=== PATIENT | female | born 1970 | race African-American/Black ===

== ENCOUNTER 2016-04-25 10:08 | Emergency (ER) | payer MEDICARE, OTHER ==
[~2016-04-25] VITALS: Ht 167.6 cm; Wt 83.0 kg
[2016-04-25 10:16] VITALS: BP 145/63; PULSE 85; RESP 18; TEMP 98.3; O2SAT 97
--- NOTE | 2016-04-25 10:27 | PD ---
HPI Chief Complaint: psychiatric Time Seen by Provider: 10:16 Travel History International Travel<30 days: No Contact w/Intl Traveler<30days: No Traveled to known affect area: No History of Present Illness HPI 46-year-old female was Chen acted and brought in for psychiatric evaluation. Patient has history of schizophrenia bipolar disorder. Patient has not been on any medication recently. Patient was observed to be aggressive and threatening of family members this morning. Patient also was hitting herself this morning. Patient denies any headache. Patient denies any chest pain or shortness of breath. Patient denies abdominal pain. Patient denies any recent medical problem. Patient denies any illicit drug use or alcohol use recently. PFSH Social History Tobacco Use: No Allergies-Medications (Allergen,Severity, Reaction): Coded Allergies: No Known Allergies (Unverified , 04/25/16) Reported Meds & Prescriptions Reported Meds & Active Scripts Active Active Prescriptions or Reported Medications Unobtainable Review of Systems General / Constitutional: No: Fever Eyes: No: Visual changes HENT: No: Headaches Cardiovascular: No: Chest Pain or Discomfort Respiratory: No: Shortness of Breath Gastrointestinal: No: Abdominal Pain Genitourinary: No: Dysuria Musculoskeletal: No: Pain Skin: No Rash Neurologic: No: Weakness Psychiatric: No: Depression Endocrine: No: Polydipsia Hematologic/Lymphatic: No: Easy Bruising Physical Exam Narrative GENERAL: Well-nourished, well-developed patient. SKIN: Warm and dry. HEAD: Normocephalic. EYES: No scleral icterus. No injection or drainage. NECK: Supple, trachea midline. No JVD or lymphadenopathy. CARDIOVASCULAR: Regular rate and rhythm without murmurs, gallops, or rubs. RESPIRATORY: Breath sounds equal bilaterally. No accessory muscle use. GASTROINTESTINAL: Abdomen soft, non-tender, nondistended. MUSCULOSKELETAL: No cyanosis, or edema. BACK: Nontender without obvious deformity. No CVA tenderness. Neurologic exam: Patient is awake and alert oriented to place and person. Patient moves all extremity well. No obvious focal neurological deficit. Data Data Last Documented VS Vital Signs Date Time Temp Pulse Resp B/P Pulse Ox O2 Delivery O2 Flow Rate FiO2 04/26/16 06:23 75 19 110/62 98 Room Air 04/25/16 15:26 98.1 Orders Complete Blood Count With Diff (04/25/16 10:21) Comprehensive Metabolic Panel (04/25/16 10:21) Urinalysis - C+S If Indicated (04/25/16 10:21) Psych Screen (04/25/16 10:21) Drug Screen, Random Urine (04/25/16 10:21) Diet Regular Basic (04/25/16 Lunch) Diet Regular Basic (04/25/16 Dinner) Diet Regular Basic (04/26/16 Breakfast) Labs Laboratory Tests Test 04/25/16 04/25/16 10:30 10:40 White Blood Count 10.1 TH/MM3 Red Blood Count 4.30 MIL/MM3 Hemoglobin 10.7 GM/DL Hematocrit 33.7 % Mean Corpuscular Volume 78.3 FL Mean Corpuscular Hemoglobin 24.9 PG Mean Corpuscular Hemoglobin 31.8 % Concent Red Cell Distribution Width 14.2 % Platelet Count 277 TH/MM3 Mean Platelet Volume 9.2 FL Neutrophils (%) (Auto) 81.8 % Lymphocytes (%) (Auto) 10.9 % Monocytes (%) (Auto) 6.7 % Eosinophils (%) (Auto) 0.4 % Basophils (%) (Auto) 0.2 % Neutrophils # (Auto) 8.3 TH/MM3 Lymphocytes # (Auto) 1.1 TH/MM3 Monocytes # (Auto) 0.7 TH/MM3 Eosinophils # (Auto) 0.0 TH/MM3 Basophils # (Auto) 0.0 TH/MM3 CBC Comment AUTO DIFF Differential Comment AUTO DIFF CONFIRMED Platelet Estimate NORMAL Platelet Morphology Comment ENLARGED Ovalocytes 1+ Urine Color YELLOW Urine Turbidity HAZY Urine pH 5.5 Urine Specific [place] 1.010 Urine Protein 30 mg/dL Urine Glucose (UA) NEG mg/dL Urine Ketones NEG mg/dL Urine Occult Blood TRACE Urine Nitrite NEG Urine Bilirubin NEG Urine Urobilinogen LESS THAN 2.0 MG/DL Urine Leukocyte Esterase LARGE Urine RBC 1 /hpf Urine WBC 4 /hpf Urine Squamous Epithelial 3 /hpf Cells Urine Transitional Epithelial <1 /hpf Cells Urine Bacteria RARE /hpf Urine Hyaline Casts 23 /lpf Urine Mucus FEW /lpf Microscopic Urinalysis Comment CULT NOT INDICATED Sodium Level 141 MEQ/L Potassium Level 3.9 MEQ/L Chloride Level 107 MEQ/L Carbon Dioxide Level 25.0 MEQ/L Anion Gap 9 MEQ/L Blood Urea Nitrogen 17 MG/DL Creatinine 1.24 MG/DL Estimat Glomerular Filtration 56 ML/MIN Rate Random Glucose 83 MG/DL Calcium Level 9.1 MG/DL Total Bilirubin 0.4 MG/DL Aspartate Amino Transf 25 U/L (AST/SGOT) Alanine Aminotransferase 14 U/L (ALT/SGPT) Alkaline Phosphatase 61 U/L Total Protein 8.3 GM/DL Albumin 4.3 GM/DL Urine Opiates Screen NEG Urine Barbiturates Screen NEG Urine Amphetamines Screen NEG Urine Benzodiazepines Screen NEG Urine Cocaine Screen NEG Urine Cannabinoids Screen NEG MDM Medical Decision Making Medical Screen Exam Complete: Yes Emergency Medical Condition: Yes Interpretation(s) 12:26 PM. CBC hemoglobin 10.7 hematocrit 33.7. MCV 78.3. 81 neutrophil. CMP within normal limit. Creatinine 1.24. Urine drug screen negative. UA negative. Differential Diagnosis Differential diagnosis including schizophrenia, psychosis, bipolar disorder. Narrative Course 46-year-old female was Chen acted for aggressive behavior, self-inflicted body harm behavior. Patient has history of schizophrenia and bipolar disorder. 12: 26 PM. Patient is medically cleared for psychiatric evaluation and disposition. Scripts Unable to Obtain Active Prescriptions or Reported Meds Dony Martinez MD Apr 25, 2016 10:27
[2016-04-25 10:56] LABS: AUTOMATED NEUTROPHIL # 8.3 TH/MM3 (1.8-7.7); BASOPHIL % 0.2 % (0.0-2.0); EOSINOPHIL % 0.4 % (0.0-4.0); HEMATOCRIT 33.7 % (35.0-46.0); LYMPH % 10.9 % (9.0-44.0); LYMPHOCYTE # 1.1 TH/MM3 (1.0-4.8); MEAN CELL VOLUME 78.3 FL (80.0-100.0); MEAN CORPUSCULAR HEMOGLOBIN 24.9 PG (27.0-34.0); MEAN CORPUSCULAR HGB CONC 31.8 % (32.0-36.0); MONO % 6.7 % (0.0-8.0); NEUT % 81.8 % (16.0-70.0); PLATELET COUNT 277 TH/MM3 (150-450); RED CELL DISTRIBUTION WIDTH 14.2 % (11.6-17.2); WHITE BLOOD COUNT 10.1 TH/MM3 (4.0-11.0)
[2016-04-25 10:59] LABS: HEMO FLAGS AUTO DIFF
[2016-04-25 11:07] LABS: AMPHETAMINE, URINE NEG (NEG); BARBITURATES, URINE NEG (NEG); COCAINE, URINE NEG (NEG)
[2016-04-25 11:08] LABS: BACTERIA, URINE RARE /hpf; BLOOD, URINE TRACE (NEG); GLUCOSE,URINE NEG (NEG); HYALINE CAST, URINE 23 /lpf (RARE); KETONE, URINE NEG (NEG); MUCUS URINE FEW /lpf (OCC); NITRITE,URINE NEG (NEG); PH, URINE 5.5 (5.0-8.5); SQUAMOUS EPITHELIAL CELL URINE 3 /hpf (0-5); TRANSITIONAL EPI CELLS, URINE <1 /hpf; URINE COLOR YELLOW (YELLW/STRAW)
[2016-04-25 11:09] LABS: COMMENT (UR) CULT NOT INDICATED; CULTURE IF INDICATED CULT NOT INDICATED
[2016-04-25 11:14] LABS: ALT (GPT) 14 U/L (10-53); ANION GAP 9 MEQ/L (5-15); AST (GOT) 25 U/L (15-37); BLOOD UREA NITROGEN 17 MG/DL (7-18); CHLORIDE 107 MEQ/L (98-107); GLOMERULAR FILTRATION RATE 56 ML/MIN (>89); POTASSIUM 3.9 MEQ/L (3.5-5.1); SODIUM (NA) 141 MEQ/L (136-145)
[2016-04-25 11:15] LABS: ALKALINE PHOSPHATASE 61 U/L (45-117); TOTAL BILIRUBIN ADULT 0.4 MG/DL (0.2-1.0)
[2016-04-25 11:22] LABS: OVALOCYTES 1+ (NORMAL); PLATELET ESTIMATE SMEAR NORMAL (NORMAL); PLATELET MORPHOLOGY ENLARGED (NORMAL)
[2016-04-25 11:23] LABS: SCAN/DIFF AUTO DIFF CONFIRMED
[2016-04-25 15:26] VITALS: BP 119/70; PULSE 83; RESP 18; TEMP 98.1; O2SAT 97
[2016-04-25 17:53] VITALS: BP 110/65; PULSE 79; RESP 18; O2SAT 99
[2016-04-25 22:10] VITALS: BP 119/55; PULSE 85; RESP 18; O2SAT 97
[2016-04-26 02:08] VITALS: BP 100/54; PULSE 89; RESP 19; O2SAT 98
[2016-04-26 06:23] VITALS: BP 110/62; PULSE 75; RESP 19; O2SAT 98
== END 2016-04-26 10:15 ==
LOC: NEPA 10:08 → NEPJ 04-26 10:15
DX: Z02.89 Encounter for other administrative examinations (principal); F20.9 Schizophrenia, unspecified; F31.9 Bipolar disorder, unspecified
CPT/HCPCS: 80053; 80307; 81001; 85025; 99284

== ENCOUNTER 2016-08-06 10:01 | Emergency (ER) | payer MEDICARE, OTHER ==
[~2016-08-06] VITALS: Ht 165.1 cm; Wt 70.0 kg
[2016-08-06 10:04] VITALS: BP 95/59; PULSE 76; RESP 24; TEMP 98.4; O2SAT 99
[2016-08-06] MEDS ORDERED: SODIUM CHLOR 0.9% 1000 ML INJ 1,000 ML IV SCH ×2 (10:36→12:18)
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
[2016-08-06] MEDS ORDERED: SODIUM CHLORIDE 0.9% FLUSH 10 ML FLUSH IV FLUSH PRN (10:45)
--- NOTE | 2016-08-06 11:05 | RADRPT ---
EXAM DATE/TIME: 08/06/2016 10:58 [facility] COMPARISON: No previous studies available for comparison. INDICATIONS : Pain without trauma. MEDICAL HISTORY : None. SURGICAL HISTORY : None. ENCOUNTER: Initial ACUITY: 1 day PAIN SCORE: 5/10 LOCATION: Lumbar spine. FINDINGS: 3 views of lumbar spine. Grade 1 retrolisthesis L5 on S1. Bone alignment otherwise within normal limi ts. No evidence of fracture. Minimal endplate osteophytes at every level of the lumbar spine. Modera te severity bony facet hypertrophy at L5-S1. Mild bony facet hypertrophy at L2-3, L3-4, and L4-5. CONCLUSION: No evidence of fracture. Moderate severity bony degenerative findings of the L5-S1 facet joints with grade 1 retrolisthesis L5 on S1. Alex Sanchez MD on August 06, 2016 at 11:01 Board Certified Radiologist. This report was verified electronically.
[2016-08-06 11:25] LABS: AUTOMATED NEUTROPHIL # 2.1 TH/MM3 (1.8-7.7); BASOPHIL % 0.7 % (0.0-2.0); EOSINOPHIL # 0.2 TH/MM3 (0-0.4); EOSINOPHIL % 4.3 % (0.0-4.0); HEMATOCRIT 36.1 % (35.0-46.0); HEMO FLAGS DIFF FINAL; LYMPHOCYTE # 1.7 TH/MM3 (1.0-4.8); MEAN CELL VOLUME 79.5 FL (80.0-100.0); MEAN CORPUSCULAR HEMOGLOBIN 25.3 PG (27.0-34.0); MEAN CORPUSCULAR HGB CONC 31.8 % (32.0-36.0); MONO % 8.5 % (0.0-8.0); NEUT % 48.5 % (16.0-70.0); PLATELET COUNT 220 TH/MM3 (150-450); RED BLOOD COUNT 4.55 MIL/MM3 (4.00-5.30); RED CELL DISTRIBUTION WIDTH 13.3 % (11.6-17.2); WHITE BLOOD COUNT 4.3 TH/MM3 (4.0-11.0)
[2016-08-06 11:44] LABS: ALKALINE PHOSPHATASE 56 U/L (45-117); ALT (GPT) 16 U/L (10-53); ANION GAP 8 MEQ/L (5-15); AST (GOT) 32 U/L (15-37); BICARBONATE 25.8 MEQ/L (21.0-32.0); BLOOD UREA NITROGEN 20 MG/DL (7-18); CHLORIDE 109 MEQ/L (98-107); CREATINE KINASE 406 U/L (26-192); GLOMERULAR FILTRATION RATE 79 ML/MIN (>89); POTASSIUM 3.9 MEQ/L (3.5-5.1); SODIUM (NA) 143 MEQ/L (136-145); TOTAL BILIRUBIN ADULT 0.3 MG/DL (0.2-1.0)
[2016-08-06 11:52] VITALS: BP 104/53; PULSE 54; RESP 15; TEMP 98; O2SAT 100
[2016-08-06 12:00] LABS: CKMB 4.9 NG/ML (0.5-3.6)
[2016-08-06 12:29] LABS: AMPHETAMINE, URINE NEG (NEG); BARBITURATES, URINE NEG (NEG); COCAINE, URINE POS (NEG)
[2016-08-06 13:25] VITALS: BP 100/57; PULSE 63; RESP 20; O2SAT 100
== END 2016-08-06 15:00 | disposition home or self-care (01) ==
LOC: NEPD 10:01
DX: F14.10 Cocaine abuse, uncomplicated (principal)
CPT/HCPCS: 72100; 80053; 80307; 82550; 82552; 85025; 96360; 96361; 99284; J7030

== ENCOUNTER 2016-08-13 03:52 | Inpatient (IN) | payer MEDICARE, OTHER ==
[~2016-08-13] VITALS: Ht 165.1 cm; Wt 78.8 kg
[2016-08-13 03:57] VITALS: BP 124/75; PULSE 92; RESP 22; TEMP 98.7; O2SAT 97
[2016-08-13 04:29] LABS: AUTOMATED NEUTROPHIL # 3.2 TH/MM3 (1.8-7.7); BASOPHIL % 0.3 % (0.0-2.0); EOSINOPHIL # 0.1 TH/MM3 (0-0.4); HEMATOCRIT 33.5 % (35.0-46.0); HEMO FLAGS DIFF FINAL; LYMPH % 21.9 % (9.0-44.0); MEAN CELL VOLUME 79.5 FL (80.0-100.0); MEAN CORPUSCULAR HEMOGLOBIN 25.2 PG (27.0-34.0); MEAN CORPUSCULAR HGB CONC 31.7 % (32.0-36.0); MONO % 5.2 % (0.0-8.0); NEUT % 70.6 % (16.0-70.0); PLATELET COUNT 196 TH/MM3 (150-450); RED BLOOD COUNT 4.21 MIL/MM3 (4.00-5.30); RED CELL DISTRIBUTION WIDTH 13.9 % (11.6-17.2); WHITE BLOOD COUNT 4.6 TH/MM3 (4.0-11.0)
[2016-08-13] MEDS ORDERED: HALOPERIDOL LACTATE 5 MG/ML AMP IM ONE (04:30)
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
[2016-08-13 04:59] LABS: ALT (GPT) 12 U/L (10-53); ANION GAP 9 MEQ/L (5-15); AST (GOT) 23 U/L (15-37); BICARBONATE 23.3 MEQ/L (21.0-32.0); BLOOD UREA NITROGEN 20 MG/DL (7-18); CHLORIDE 112 MEQ/L (98-107); GLOMERULAR FILTRATION RATE 66 ML/MIN (>89); POTASSIUM 3.9 MEQ/L (3.5-5.1); SODIUM (NA) 144 MEQ/L (136-145)
[2016-08-13 05:03] LABS: ALKALINE PHOSPHATASE 53 U/L (45-117); BETA HCG QUANT LESS THAN 1 MIU/ML (0-5); TOTAL BILIRUBIN ADULT 0.2 MG/DL (0.2-1.0)
[2016-08-13 10:59] VITALS: BP 95/51; PULSE 70; RESP 16; O2SAT 100
[2016-08-13 14:05] LABS: AMPHETAMINE, URINE NEG (NEG); BARBITURATES, URINE NEG (NEG); COCAINE, URINE POS (NEG)
[2016-08-13 14:09] VITALS: BP 112/62; PULSE 73; RESP 16; O2SAT 98
[2016-08-13 14:29] VITALS: BP 101/64; PULSE 62; RESP 18
[2016-08-13 14:57] VITALS: BP 101/64; PULSE 62; RESP 17; O2SAT 99
[2016-08-13] MEDS ORDERED: MAGNESIUM HYDROXIDE SUSP 30 ML CUP PO PRN (17:00)
[2016-08-13] MEDS ORDERED: ACETAMINOPHEN 325 MG TAB PO PRN (17:00)
[2016-08-13] MEDS ORDERED: ALUMINUM/MAGNESIUM/SIMETH 30 ML CUP PO PRN (17:00)
[2016-08-13] MEDS ORDERED: LORazepam 1 MG TAB PO PRN (17:00)
[2016-08-13] MEDS ORDERED: diphenhydrAMINE HCL 50 MG/ML VIAL - HS PRN IM (17:00)
[2016-08-13] MEDS ORDERED: diphenhydrAMINE HCL 50 MG CAP - HS PRN PO (17:00)
[2016-08-13] MEDS ORDERED: LORazepam 2 MG/ML VIAL IM PRN (17:00)
[2016-08-13 17:09] VITALS: BP 114/68; PULSE 87; RESP 18; TEMP 96
[2016-08-13] MEDS: REMOVE OLD NICOTINE PATCH T-DERMAL SCH (21:00)
[2016-08-13] MEDS: HALOPERIDOL 5 MG TAB PO SCH (21:00)
[2016-08-14 05:43] VITALS: BP 101/51; PULSE 57; RESP 18; TEMP 97; O2SAT 93
[2016-08-14 07:52] LABS: ANION GAP 8 MEQ/L (5-15); BICARBONATE 25.3 MEQ/L (21.0-32.0); BLOOD UREA NITROGEN 12 MG/DL (7-18); CHLORIDE 108 MEQ/L (98-107); GLOMERULAR FILTRATION RATE 97 ML/MIN (>89); POTASSIUM 4.2 MEQ/L (3.5-5.1); SODIUM (NA) 141 MEQ/L (136-145)
[2016-08-14 07:55] LABS: HDL CHOLESTEROL 61.2 MG/DL (40.0-60.0); LDL CHOLESTEROL 54 MG/DL (0-99)
[2016-08-14] MEDS: HALOPERIDOL 5 MG TAB PO SCH ×2 (09:00→21:00)
[2016-08-14] MEDS: BENZTROPINE MESYLATE 1 MG TAB PO SCH (09:00)
[2016-08-14] MEDS: NICOTINE 21 MG/24 HR PATCH T-DERMAL SCH (09:00)
--- NOTE | 2016-08-14 11:21 | HHI.HP ---
Provisional Diagnosis Admission Date Aug 13, 2016 at 16:02 [place] I. 1. Schizophrenia, undifferentiated type, acute exacerbation Rule out component of drug induced psychotic disorder 2. Cocaine abuse [place] II. Deferred [place] V. GAF is 40 presently Certification of Person's Competence To Provide Express and Informed Consent I have personally examined Lynne Grubbs , a person being served at [facility] on, Aug 14, 2016 11:21. Express and informed consent means consent voluntarily given in writing, by a competent person, after sufficient explanation and disclosure of the subject matter involved to enable the person to make a knowing and willful decision without any element of force, fraud, deceit, duress, or other form of constraint or coercion. This person is 18 years of age or older, is not now known to be incompetent to consent to treatment with a guardian advocate, and does not have a health care surrogate or proxy currently making medical treatment decisions. I have found this person to be one of the following: [x] Competent to provide express and informed consent, as defined above, for voluntary admission to this facility and is competent to provide express and informed consent for treatment. He/she has the consistent capacity to make well reasoned, willful, and knowing decisions concerning his or her medical or mental health treatment. The person fully and consistently understands the purpose of the admission for examination/placement and is fully capable of personally exercising all rights assured [place] Incompetent to provide express and informed consent to voluntary admission, and this is incompetent to provide express and informed consent to treatment. The person must be transferred to involuntary status and a petition for a guardian advocate filed with the Circuit Court. [] Refusing to provide express and informed consent to voluntary admission but is competent to provide express and informed consent for treatment. The person must be discharged or transferred to involuntary status. Form shall be completed within 24 hours of a person's arrival at the receiving facility and filed in the clinical record of each person: 1. Admitted on a voluntary basis 2. Permitted to provide express and informed consent to his/her own treatment 3. Allowed to transfer from involuntary to voluntary status 4. Prior to permitting a person to consent to his or her own treatment after having been previously found incompetent to consent to treatment. History of Present Illness Capacity: Has Capacity HPI Ms. Grubbs is a 46-year-old female with a self-reported history of depression and a chart history of schizophrenia who presents under a [place] act from [place] [employer] alleging that the patient was agitated and aggressive at home. Reviewing our electronic medical record, I note that patient was admitted previously under a somewhat different name under Dr. Tapia in March 2015. Patient seen and examined with counselor and nurse. Chart reviewed. I note that Dr. Zamudio started the patient on some Haldol. Case discussed with nursing staff. On my examination today, the patient says that her agitation was the result of "the way my family was behaving towards me. They were turning lights off. They were smiling likely were up to something." The patient later goes on to say that she believes that they were trying to participate in some sort of sance, and she does not support this sort of behavior. She says that nothing like this has ever happened before with her family. No ideas of reference. No thought insertion or withdrawal. Denies any suicidal or homicidal ideation. Denies any audiovisual hallucinations. Mood fair. Sleeping and eating okay. No hypomanic or manic symptoms noted. The remainder of the psychiatric ROS is negative. She is tolerating the Haldol well without side effects and feels like this is a good medication for her. Past psychiatric history: Patient reports a history of depression. Chart history suggests schizophrenia. She is not currently under the care of a psychiatrist. Following her admission with Dr. Tapia, the patient was later admitted that [facility] a few months ago. She denies a history of suicide attempts. Review of Systems Except as stated in HPI: all other systems reviewed are Neg Past Psych History Psychological trauma history No reported trauma history to me Violence risk - others (6 mos) Indeterminate. The patient does seem somewhat paranoid regarding her family but denies any homicidal ideation. She was also allegedly somewhat aggressive at home. Violence risk - self (6 mos) Suspect lower risk. Denies suicidal ideation. No reported history of suicide attempts. No family history of suicide attempts. Substance use is a risk factor. Substance Abuse History Drugs/Alcohol past 12 months Patient admits to recent use of powder cocaine. I note that her urine toxicology has been positive for this substance in the past. She also smokes a pack a day of cigarettes. Denies any other substance use. Past Family Social History Coded Allergies: No Known Allergies (Unverified , 04/25/16) Past Medical History Patient denies any medical history. Unable to Obtain Active Prescriptions or Reported Meds Current Medications Medications (Trade) Dose Ordered Sig/Adal Route Start Time Stop Time Status Last Admin (Ativan) 1 mg Q6H PRN PO 08/13/16 17:00 08/13/16 21:25 (Ativan Inj) 1 mg Q6H PRN IM 08/13/16 17:00 (Benadryl) 50 mg HS PRN PO 08/13/16 17:00 (Benadryl Inj) 50 mg HS PRN IM 08/13/16 17:00 (Tylenol) 650 mg Q4H PRN PO 08/13/16 17:00 (Milk Of Magnesia Liq) 30 ml DAILY PRN PO 08/13/16 17:00 (Mag-Al Plus Susp Liq) 30 ml Q6H PRN PO 08/13/16 17:00 (Habitrol 21 Mg Patch.24 Hr) 1 patch DAILY T-DERMAL 08/14/16 09:00 Miscellaneous Information 1 HS T-DERMAL 08/13/16 21:00 (Haldol) 5 mg BID PO 08/13/16 21:00 08/14/16 09:00 (Cogentin) 1 mg DAILY PO 08/14/16 09:00 08/14/16 09:00 Family History Patient denies any family history of serious mental illness or suicide. She does report that substance use issues run on her mother's side of the family. Social History Patient reports that she had been staying with her family but now would like to seek new housing. She is . She does have children and keeps in telephone contact with them. She has some college education. She is presently disabled and receives about $700 a month she tells us. She denies any or legal history. Denies any access to guns or firearms. Patient's Strengths (min. 2) In a monitored setting. Verbally fluent. Physical Exam Physical examination was completed by the ED provider. On my examination today , the patient appears to be in no acute physical distress. No abnormal motor movements noted. Laboratories and vital signs reviewed: Vital Signs Vital Signs Date Time Temp Pulse Resp B/P Pulse Ox O2 Delivery O2 Flow Rate FiO2 08/14/16 05:43 97.0 57 18 101/51 93 08/13/16 14:09 Room Air I/O 08/13/16 08/13/16 08/14/16 08:00 16:00 00:00 Intake Total 480 ml Balance 480 ml Lab Results Item Value Date Time White Blood Count 4.6 TH/MM3 08/13/16 0410 Hemoglobin 10.6 GM/DL L 08/13/16 0410 Platelet Count 196 TH/MM3 08/13/16 0410 Sodium Level 141 MEQ/L 08/14/16 0555 Potassium Level 4.2 MEQ/L 08/14/16 0555 Chloride Level 108 MEQ/L H 08/14/16 0555 Carbon Dioxide Level 25.3 MEQ/L 08/14/16 0555 Blood Urea Nitrogen 12 MG/DL 08/14/16 0555 Creatinine 0.77 MG/DL 08/14/16 0555 Random Glucose 88 MG/DL 08/14/16 0555 Aspartate Amino Transf (AST/SGOT) 23 U/L 08/13/16 0410 Alanine Aminotransferase (ALT/SGPT) 12 U/L 08/13/16 0410 Alkaline Phosphatase 53 U/L 08/13/16 0410 Human Chorionic Gonadotropin, Quant LESS THAN 1 MIU/ML 08/13/16 0410 Urine Cocaine Screen POS H 08/13/16 1345 Ethyl Alcohol Level LESS THAN 3 MG/DL 08/13/16 0410 Mental Status Examination Patient is in hospital gown. She is somewhat disheveled but appears to be maintaining basic hygiene. She is awake and alert and oriented to person and hospital at least. No evidence of delirium. No abnormal motor movements noted. Speech is somewhat slow but otherwise within normal limits for tone and volume. Language and fund of knowledge seem average. Focus and concentration seem fairly intact. Memory is grossly intact on clinical exam. Mood is reportedly fair but affect is somewhat blunted. Thought process linear. No loosening of associations. Possibly some paranoia directed against her family but no other evidence delusional material. Denies audiovisual hallucinations. Denies suicidal or homicidal ideation. Insight and judgment are poor. Assessment & Plan Problem List: (1) Schizophrenia ICD Code: F20.9 (2) Cocaine abuse ICD Code: F14.10 Assessment & Plan This is a 46-year-old female with psychiatric history as detailed above who presents under a [place] act. On my examination today, the patient does articulate some ideation that I suspect is paranoid in nature directed against her family. She denies any audiovisual hallucinations or issues with mood at this time. She is tolerating the Haldol that Dr. Zamudio started her on well without side effects. She would like to move away from her family, and given her comorbid substance use issues we discussed about possible sober living placement, and the patient is agreeable to this. I will admit the patient to the inpatient psychiatric unit for observation and stabilization as well as possibly for placement as detailed above. Admitted inpatient. Voluntary status. Check a CBC as well as iron studies in the morning. Continue Haldol 5 mg twice daily as ordered. To consider Haldol Decanoate. Continue Cogentin as ordered. Continue Benadryl and Ativan as needed. Vitals every shift. Counselor to see. Disposition planning. Estimated length of stay: 7-9 days. Discharge Planning Possible sober living placement. Request HC Surrog/Guard Advoc?: No Problem Qualifiers (1) Schizophrenia: Qualified Code: F20.3 - Undifferentiated schizophrenia Mathew Dominguez MD Aug 14, 2016 11:21
[2016-08-14 17:09] LABS: HEMOGLOBIN A1a 1.2 %; HEMOGLOBIN A1b 0.7 %; HEMOGLOBIN Ao 86.2 %; HEMOGLOBIN F 1.1 %; HEMOGLOBIN LA1C 1.7 %; HEMOGLOBIN P3 3.2 %
[2016-08-14 17:55] VITALS: BP 104/53; PULSE 63; RESP 18; TEMP 98.8; O2SAT 97
[2016-08-14] MEDS: REMOVE OLD NICOTINE PATCH T-DERMAL SCH (21:00)
[2016-08-15 05:50] VITALS: BP 103/51; PULSE 60; RESP 18; TEMP 98.3; O2SAT 97
[2016-08-15 08:03] LABS: AUTOMATED NEUTROPHIL # 1.5 TH/MM3 (1.8-7.7); BASOPHIL % 0.7 % (0.0-2.0); EOSINOPHIL # 0.3 TH/MM3 (0-0.4); EOSINOPHIL % 6.4 % (0.0-4.0); HEMO FLAGS DIFF FINAL; LYMPH % 47.5 % (9.0-44.0); LYMPHOCYTE # 1.9 TH/MM3 (1.0-4.8); MEAN CORPUSCULAR HEMOGLOBIN 24.9 PG (27.0-34.0); MEAN CORPUSCULAR HGB CONC 31.1 % (32.0-36.0); MONO % 6.4 % (0.0-8.0); PLATELET COUNT 218 TH/MM3 (150-450); RED BLOOD COUNT 4.75 MIL/MM3 (4.00-5.30); WHITE BLOOD COUNT 3.9 TH/MM3 (4.0-11.0)
[2016-08-15 08:28] LABS: FERRITIN 26 NG/ML (8-252); TRANSFERRIN IRON PROFILE 265 MG/DL (200-360)
[2016-08-15] MEDS: HALOPERIDOL 5 MG TAB PO SCH ×2 (08:57→21:16)
[2016-08-15] MEDS: BENZTROPINE MESYLATE 1 MG TAB PO SCH (08:57)
[2016-08-15] MEDS: NICOTINE 21 MG/24 HR PATCH T-DERMAL SCH (08:57)
--- NOTE | 2016-08-15 11:36 | HHI.PYPN ---
Subjective Remarks Patient seen and examined with counselor and nurse. Chart reviewed. Case discussed with nurse, counselor and occupational therapist in treatment team. Per nursing staff, the patient is fairly seclusive to her room. On my examination today, the patient denies any SI, HI or AVH. She presents as somewhat hypoverbal and flat. She does not describe any new delusional material. Denies side effects from medications. Complains of R flank pain x 1.5mos. No associated symptoms, no urinary symptoms, no exacerbating/relieving factors. Review of Systems ROS Limitations: Poor Historian Except as stated in HPI: all other systems reviewed are Neg Objective Alert: Yes [place]: Person, Place (at least) Mood: Calm Affect: Flat Memory Intact: Comment (At least fair on clinical exam) Hallucinations: Other (No AVH) Delusions: No Delusion Type: Other (No new delusions. Continues to believe family was holding seances.) Suicidal: Ideation (Denies SI) Homicidal: Ideation (Denies HI) Insight/Judgment Poor Remarks No abnormal motor movements noted. Thought process fairly linear. Some paucity of speech. Labs Test 08/15/16 06:47 White Blood Count 3.9 TH/MM3 Red Blood Count 4.75 MIL/MM3 Hemoglobin 11.8 GM/DL Hematocrit 38.0 % Mean Corpuscular Volume 80.0 FL Mean Corpuscular Hemoglobin 24.9 PG Mean Corpuscular Hemoglobin 31.1 % Concent Red Cell Distribution Width 14.0 % Platelet Count 218 TH/MM3 Mean Platelet Volume 10.0 FL Neutrophils (%) (Auto) 39.0 % Lymphocytes (%) (Auto) 47.5 % Monocytes (%) (Auto) 6.4 % Eosinophils (%) (Auto) 6.4 % Basophils (%) (Auto) 0.7 % Neutrophils # (Auto) 1.5 TH/MM3 Lymphocytes # (Auto) 1.9 TH/MM3 Monocytes # (Auto) 0.3 TH/MM3 Eosinophils # (Auto) 0.3 TH/MM3 Basophils # (Auto) 0.0 TH/MM3 CBC Comment DIFF FINAL Differential Comment Iron Level 109 MCG/DL Total Iron Binding Capacity 371 MCG/DL Percent Iron Saturation 29.4 % Ferritin 26 NG/ML Labs reviewed. Iron studies within normal limits. Anemia improved but the patient now appears to have a mild leukopenia and granulocytopenia. Vitals/IOs Vital Signs Date Time Temp Pulse Resp B/P Pulse Ox O2 Delivery O2 Flow Rate FiO2 08/15/16 05:50 98.3 60 18 103/51 97 08/13/16 14:09 Room Air Assessment & Plan Problem List: (1) Schizophrenia ICD Code: F20.9 (2) Cocaine abuse ICD Code: F14.10 Assessment & Plan Recheck CBC in the morning for leukopenia/granulocytopenia. I do not suspect this is related to recent introduction of Haldol, but if dyscrasia continues to worsen, may need to consult hospitalist and/or modify therapy. I will continue the Haldol as ordered for now. Check UA for flank pain. Continue to monitor on the inpatient unit. Continue other medications and care as ordered. Justification for Cont. Inpt. Concern for complicating condition. High risk for decompensation in a less restrictive environment. Discharge Planning Possibly to sober living. Counselor to obtain collateral from patient's daughters with her permission. Request HC Surrog/Guard Advoc?: No Problem Qualifiers (1) Schizophrenia: Qualified Code: F20.3 - Undifferentiated schizophrenia Mathew Dominguez MD Aug 15, 2016 11:36
[2016-08-15 18:50] VITALS: BP 91/51; PULSE 69; RESP 17; TEMP 98.2; O2SAT 98
[2016-08-15] MEDS: REMOVE OLD NICOTINE PATCH T-DERMAL SCH (21:00)
[2016-08-16 06:14] VITALS: BP 92/50; PULSE 64; RESP 18; TEMP 98; O2SAT 98
[2016-08-16] MEDS: NICOTINE 21 MG/24 HR PATCH T-DERMAL SCH (09:00)
[2016-08-16] MEDS: HALOPERIDOL 5 MG TAB PO SCH ×2 (09:01→20:12)
[2016-08-16] MEDS: BENZTROPINE MESYLATE 1 MG TAB PO SCH (09:01)
[2016-08-16 11:35] LABS: AUTOMATED NEUTROPHIL # 1.8 TH/MM3 (1.8-7.7); BASOPHIL % 0.9 % (0.0-2.0); EOSINOPHIL # 0.2 TH/MM3 (0-0.4); EOSINOPHIL % 5.2 % (0.0-4.0); HEMATOCRIT 38.8 % (35.0-46.0); HEMO FLAGS DIFF FINAL; LYMPH % 34.2 % (9.0-44.0); LYMPHOCYTE # 1.2 TH/MM3 (1.0-4.8); MEAN CELL VOLUME 79.5 FL (80.0-100.0); MEAN CORPUSCULAR HGB CONC 31.4 % (32.0-36.0); MONO % 7.2 % (0.0-8.0); NEUT % 52.5 % (16.0-70.0); PLATELET COUNT 230 TH/MM3 (150-450); RED BLOOD COUNT 4.89 MIL/MM3 (4.00-5.30); RED CELL DISTRIBUTION WIDTH 14.1 % (11.6-17.2); WHITE BLOOD COUNT 3.5 TH/MM3 (4.0-11.0)
--- NOTE | 2016-08-16 12:29 | HHI.PYPN ---
Subjective Remarks Patient seen and examined with counselor. Chart reviewed. On my examination today, affect is more reactive. Patient laughs and smiles appropriately at times. She says that she has spoken with her older daughter, Marian, and gives us her number to obtain collateral. Denies AVH. No paranoia. No SI/HI. Still wants to get her own apartment but is not really interested in [facility] or sober living. Might go back to home she came from temporarily while looking for alternative lodging. Denies side effects from medications. Pleased with current dose. No physical complaints. Review of Systems Except as stated in HPI: all other systems reviewed are Neg Objective Alert: Yes [place]: Person, Place Mood: Calm Affect: Appropriate Memory Intact: Comment (fair) Hallucinations: Other (denies AVH) Delusions: No Delusion Type: Other (no delusional material) Suicidal: Ideation (Denies SI) Homicidal: Ideation (Denies HI) Insight/Judgment Fair Remarks No motor abnormalities noted. Labs Test 08/16/16 11:12 White Blood Count 3.5 TH/MM3 Red Blood Count 4.89 MIL/MM3 Hemoglobin 12.2 GM/DL Hematocrit 38.8 % Mean Corpuscular Volume 79.5 FL Mean Corpuscular Hemoglobin 25.0 PG Mean Corpuscular Hemoglobin 31.4 % Concent Red Cell Distribution Width 14.1 % Platelet Count 230 TH/MM3 Mean Platelet Volume 9.6 FL Neutrophils (%) (Auto) 52.5 % Lymphocytes (%) (Auto) 34.2 % Monocytes (%) (Auto) 7.2 % Eosinophils (%) (Auto) 5.2 % Basophils (%) (Auto) 0.9 % Neutrophils # (Auto) 1.8 TH/MM3 Lymphocytes # (Auto) 1.2 TH/MM3 Monocytes # (Auto) 0.3 TH/MM3 Eosinophils # (Auto) 0.2 TH/MM3 Basophils # (Auto) 0.0 TH/MM3 CBC Comment DIFF FINAL Differential Comment Labs reviewed: ANC improved but WBC about the same. UA not available for my review. Vitals/IOs Vital Signs Date Time Temp Pulse Resp B/P Pulse Ox O2 Delivery O2 Flow Rate FiO2 08/16/16 06:14 98.0 64 18 92/50 98 08/13/16 14:09 Room Air Assessment & Plan Problem List: (1) Schizophrenia ICD Code: F20.9 (2) Cocaine abuse ICD Code: F14.10 Assessment & Plan Continue Haldol and Cogentin as ordered. Continue to trend CBC. I will ask hospitalist to evaluate the patient for leukopenia. Continue to monitor on the inpatient unit. Continue other medications and care as ordered. Justification for Cont. Inpt. Possible complicating condition. Risk for decompensation. Discharge Planning Possible discharge end of this week or beginning of next week. Request HC Surrog/Guard Advoc?: No Problem Qualifiers (1) Schizophrenia: Qualified Code: F20.3 - Undifferentiated schizophrenia Mathew Dominguez MD Aug 16, 2016 12:29
--- NOTE | 2016-08-16 16:10 | PD.CONS ---
HPI Service [facility] Consult Requested By Angelica Primary Care Physician Clotilde Primary Care Physician Diagnoses: History of Present Illness Written by ELIZA Ha acting as scribe for Dr. Topete] on 08/16/16 at 14 :30. 46 y/o female with a history of depression came to the hospital because she was hearing voices. [facility] was consulted for leukopenia. Patient denies any history of low blood counts in the past. Denies any fevers, chills, or dysuria noted. She states the voices are getting better. She denies any chest pain or sob. No signs of infection noted. Review of Systems Constitutional: DENIES: Fever, Chills Respiratory: DENIES: Cough, Sputum production, Shortness of breath Cardiovascular: DENIES: Chest pain, Lower Extremity Edema Gastrointestinal: DENIES: Constipation, Diarrhea, Nausea, Vomiting Genitourinary: DENIES: Hematuria, Dysuria Musculoskeletal: DENIES: Back pain, Neck pain Hematologic/lymphatic: DENIES: Lymphadenopathy Neurologic: DENIES: Headache Past Family Social History Allergies: Coded Allergies: No Known Allergies (Unverified , 04/25/16) Past Medical History Depression Past Surgical History Patient denies any surgical history Reported Medications Reported Meds & Active Scripts Active Active Prescriptions or Reported Medications Unobtainable Active Ordered Medications Current Medications Medications (Trade) Dose Ordered Sig/Adal Route Start Time Stop Time Status Last Admin (Ativan) 1 mg Q6H PRN PO 08/13/16 17:00 08/13/16 21:25 (Ativan Inj) 1 mg Q6H PRN IM 08/13/16 17:00 (Benadryl) 50 mg HS PRN PO 08/13/16 17:00 08/14/16 21:01 (Benadryl Inj) 50 mg HS PRN IM 08/13/16 17:00 (Tylenol) 650 mg Q4H PRN PO 08/13/16 17:00 08/15/16 08:59 (Milk Of Magnesia Liq) 30 ml DAILY PRN PO 08/13/16 17:00 (Mag-Al Plus Susp Liq) 30 ml Q6H PRN PO 08/13/16 17:00 (Habitrol 21 Mg Patch.24 Hr) 1 patch DAILY T-DERMAL 08/14/16 09:00 Miscellaneous Information 1 HS T-DERMAL 08/13/16 21:00 (Haldol) 5 mg BID PO 08/13/16 21:00 08/16/16 09:01 (Cogentin) 1 mg DAILY PO 08/14/16 09:00 08/16/16 09:01 Family History Patient is unsure of her family history Social History Tobacco use: denies Alcohol use: 2 16oz of natural ice a day Illicit drug use: cocaine and marijuana Physical Exam Vital Signs Vital Signs Date Time Temp Pulse Resp B/P Pulse Ox O2 Delivery O2 Flow Rate FiO2 08/16/16 06:14 98.0 64 18 92/50 98 08/15/16 18:50 98.2 69 17 91/51 98 Physical Exam GENERAL: This is a well-nourished, well-developed patient, in no apparent distress. SKIN: No rashes, ecchymoses or lesions. Cool and dry. HEAD: Atraumatic. Normocephalic. No temporal or scalp tenderness. EYES: Pupils equal round and reactive. Extraocular motions intact. No scleral icterus. No injection or drainage. ENT: Nose without bleeding, purulent drainage or septal hematoma.Airway patent. NECK: Trachea midline. No JVD or lymphadenopathy. Supple, nontender, no meningeal signs. CARDIOVASCULAR: Regular rate and rhythm without murmurs, gallops, or rubs. RESPIRATORY: Clear to auscultation. Breath sounds equal bilaterally. No wheezes , rales, or rhonchi. GASTROINTESTINAL: Abdomen soft, non-tender, nondistended. MUSCULOSKELETAL: Extremities without clubbing, cyanosis, or edema NEUROLOGICAL: Awake and alert. Motor and sensory grossly within normal limits. Normal speech. Laboratory Laboratory Tests Test 08/16/16 11:12 White Blood Count 3.5 Red Blood Count 4.89 Hemoglobin 12.2 Hematocrit 38.8 Mean Corpuscular Volume 79.5 Mean Corpuscular Hemoglobin 25.0 Mean Corpuscular Hemoglobin 31.4 Concent Red Cell Distribution Width 14.1 Platelet Count 230 Mean Platelet Volume 9.6 Neutrophils (%) (Auto) 52.5 Lymphocytes (%) (Auto) 34.2 Monocytes (%) (Auto) 7.2 Eosinophils (%) (Auto) 5.2 Basophils (%) (Auto) 0.9 Neutrophils # (Auto) 1.8 Lymphocytes # (Auto) 1.2 Monocytes # (Auto) 0.3 Eosinophils # (Auto) 0.2 Basophils # (Auto) 0.0 CBC Comment DIFF FINAL Differential Comment Result Diagram: 08/16/16 1112 08/14/16 0555 Assessment and Plan Problem List: (1) Schizophrenia ICD Code: F20.9 Status: Acute (2) Substance abuse ICD Code: F19.10 Status: Chronic (3) Leukopenia ICD Code: D72.819 Status: Acute Assessment and Plan 46 y/o female with a history of depression came to the hospital because she was hearing voices. [facility] was consulted for leukopenia. Schizophrenia -Managed by psych Leukopenia, no fevers or signs of infection WBC 3.9-->3.5, neutrophil count normal. -Repeat CBC in 2 days -Cont to monitor Substance abuse, cocaine and etoh abuse -Encouraged to quit DVT prophylaxis: Ambulation This note was transcribed by scribe [Sushma Magana]. I, Dr. Dot Palacios personally performed the history, physical exam, and medical decision making; and confirmed the accuracy of the information in the transcribed note. Authenticated by Dr. Dot Palacios on 08/16/16 at 1437. Discussed Condition With Patient Problem Qualifiers (1) Schizophrenia: Qualified Code: F20.3 - Undifferentiated schizophrenia Sushma Magana Aug 16, 2016 16:10 Dot Palacios MD Aug 16, 2016 17:58
[2016-08-16 17:59] VITALS: BP 97/46; PULSE 66; RESP 16; TEMP 97.4; O2SAT 98
[2016-08-16 20:54] VITALS: BP 97/46; PULSE 64; RESP 18; TEMP 98; O2SAT 98
[2016-08-16] MEDS: REMOVE OLD NICOTINE PATCH T-DERMAL SCH (21:00)
[2016-08-17 05:28] VITALS: BP 91/56; PULSE 83; RESP 16; TEMP 98.1; O2SAT 97
[2016-08-17] MEDS: NICOTINE 21 MG/24 HR PATCH T-DERMAL SCH (09:00)
[2016-08-17] MEDS: BENZTROPINE MESYLATE 1 MG TAB PO SCH (09:01)
[2016-08-17] MEDS: HALOPERIDOL 5 MG TAB PO SCH (09:01)
[2016-08-17 11:06] LABS: AUTOMATED NEUTROPHIL # 1.8 TH/MM3 (1.8-7.7); BASOPHIL % 0.9 % (0.0-2.0); EOSINOPHIL # 0.2 TH/MM3 (0-0.4); EOSINOPHIL % 4.9 % (0.0-4.0); HEMATOCRIT 38.7 % (35.0-46.0); HEMO FLAGS DIFF FINAL; LYMPH % 36.7 % (9.0-44.0); LYMPHOCYTE # 1.4 TH/MM3 (1.0-4.8); MEAN CELL VOLUME 80.8 FL (80.0-100.0); MEAN CORPUSCULAR HEMOGLOBIN 24.4 PG (27.0-34.0); MEAN CORPUSCULAR HGB CONC 30.3 % (32.0-36.0); MONO % 9.2 % (0.0-8.0); NEUT % 48.3 % (16.0-70.0); PLATELET COUNT 193 TH/MM3 (150-450); RED BLOOD COUNT 4.78 MIL/MM3 (4.00-5.30); WHITE BLOOD COUNT 3.7 TH/MM3 (4.0-11.0)
[2016-08-17] MEDS ORDERED: Benztropine PO (13:05)
[2016-08-17] MEDS ORDERED: HALO5TAB PO (13:05)
--- NOTE | 2016-08-17 13:05 | HHI.DS ---
Psychiatry Discharge Summary Inpatient Psychiatric care?: Yes Advance Directive: No Reason Not Provided: Due to Patient Condition Mental Health AdvanceDirective: No Health Care Proxy: No Admission Admission Date Aug 13, 2016 at 16:02 Admission Diagnosis: (1) Schizophrenia ICD Code: F20.9 (2) Cocaine abuse ICD Code: F14.10 Brief History Ms. Grubbs is a 46-year-old female with a self-reported history of depression and a chart history of schizophrenia who presents under a Chen act from [facility] Department alleging that the patient was agitated and aggressive at home. Reviewing our electronic medical record, I note that patient was admitted previously under a somewhat different name under Dr. Tapia in March 2015. Patient seen and examined with counselor and nurse. Chart reviewed. I note that Dr. Zamudio started the patient on some Haldol. Case discussed with nursing staff. On my examination today, the patient says that her agitation was the result of "the way my family was behaving towards me. They were turning lights off. They were smiling likely were up to something." The patient later goes on to say that she believes that they were trying to participate in some sort of sance, and she does not support this sort of behavior. She says that nothing like this has ever happened before with her family. No ideas of reference. No thought insertion or withdrawal. Denies any suicidal or homicidal ideation. Denies any audiovisual hallucinations. Mood fair. Sleeping and eating okay. No hypomanic or manic symptoms noted. The remainder of the psychiatric ROS is negative. She is tolerating the Haldol well without side effects and feels like this is a good medication for her. Past psychiatric history: Patient reports a history of depression. Chart history suggests schizophrenia. She is not currently under the care of a psychiatrist. Following her admission with Dr. Tapia, the patient was later admitted that ACT a few months ago. She denies a history of suicide attempts. Tobacco Use In Past 30 Days: 5 or More Cigarettes/Day Alcohol Use: Never Hospital Course Patient was admitted to a locked, inpatient psychiatric unit. Appropriate precautions were in place throughout patient's hospital stay. A general medical consultation was obtained. Patient was seen and examined daily on the unit by psychiatry and also visited by counselor. Medications were adjusted. Patient tolerated medications well without side effects. Patient had improvement in her presenting psychiatric symptomatology. There was no evidence of any suicidality or homicidality on the inpatient unit. Patient remained in good behavioral control and was medication compliant. On the day of discharge: Patient seen and examined with counselor and nurse. Chart reviewed. Case discussed with nursing staff who reports the patient has been no behavioral problem. On my examination today, the patient requests discharge from the inpatient psychiatric unit. She feels improved from a psychiatric standpoint and feels "stabilized and balanced." She feels like the medications are helping and plans to continue these on discharge. She denies any issues with mood. She denies any suicidal or homicidal ideation, intent or plan on direct questioning. She denies any audiovisual hallucinations and I can elicit no delusional beliefs. She denies any side effects from medications. She has no physical complaints. I have discussed with her the concerns regarding her mild leukopenia and recommended ongoing inpatient observation to monitor this problem, but the patient requests to be discharged today and says that she will follow up on this issue on an outpatient basis. I cuff stitcher that she is capacitated to make this decision at this time. I have ordered the follow-up CBC as recommended by the hospitalist sap payroll consultant. Weighing the acute, chronic, and protective factors and based on the available evidence, I cuff stitcher to a reasonable degree of medical certainty that the patient is at low imminent risk of harm to self or others or mental illnesses to find under the Chen act and her level of function is adequate for outpatient care. Patient therefore does not meet criteria for involuntary psychiatric hospitalization. Given that she does not meet criteria for involuntary hospitalization given that she is requesting discharge from the inpatient psychiatric unit today I must arrange for her discharge today with psychiatric follow-up as arranged by counselor. Patient is also to follow-up with primary care. I counseled patient to abstain from substances of abuse. I counseled the patient regarding warning signs for need to return to the psychiatric emergency room as part of the general safety plan. Results Blood Pressure 91 / 56 Vital Signs Date Time Temp Pulse Resp B/P Pulse Ox O2 Delivery O2 Flow Rate FiO2 08/17/16 05:28 98.1 83 16 91/56 97 08/13/16 14:09 Room Air Laboratory Tests Test 08/15/16 08/16/16 08/17/16 06:47 11:12 10:41 White Blood Count 3.9 TH/MM3 3.5 TH/MM3 3.7 TH/MM3 (4.0-11.0) (4.0-11.0) (4.0-11.0) Mean Corpuscular Hemoglobin 24.9 PG 25.0 PG 24.4 PG (27.0-34.0) (27.0-34.0) (27.0-34.0) Mean Corpuscular Hemoglobin 31.1 % 31.4 % 30.3 % Concent (32.0-36.0) (32.0-36.0) (32.0-36.0) Lymphocytes (%) (Auto) 47.5 % (9.0-44.0) Eosinophils (%) (Auto) 6.4 % (0.0-4.0) 5.2 % (0.0-4.0) 4.9 % (0.0-4.0) Neutrophils # (Auto) 1.5 TH/MM3 (1.8-7.7) Mean Corpuscular Volume 79.5 FL (80.0-100.0) Monocytes (%) (Auto) 9.2 % (0.0-8.0) Laboratory Results Test 08/14/16 05:55 Hemoglobin A1c 5.4 % (4.3-6.0) Triglycerides Level 33 MG/DL (42-150) Cholesterol Level 122 MG/DL (120-200) LDL Cholesterol 54 MG/DL (0-99) HDL Cholesterol 61.2 MG/DL (40.0-60.0) Summary of Major Lab Results Stable mild leukopenia without granulocytopenia. Summary of Procedures None done Imaging None done Pending results at discharge: No Medications # of Antipsychotic meds at D/C: 1 Approp Antipsych med options 1 - Minimum of three failed multiple trials of monotherapy. 2 - Documented plan to taper to monotherapy due to previous use of multiple meds OR cross-taper in progress at D/C. 3 - Documentation of augmentation of Clozapine. 4 - Justification other than those listed in allowable values 1-3, document here : Discharge Discharge Date: Aug 17, 2016 Discharge Diagnosis: (1) Schizophrenia Diagnosis: Principal (stabilized) ICD Code: F20.9 (2) Cocaine abuse Diagnosis: Secondary (counseled to quit) ICD Code: F14.10 GAF on discharge is 60 Mental Status Exam at Disch Patient is in hospital gown. She is well groomed and maintaining basic hygiene. She is awake and alert and oriented 3. No evidence of delirium. No motor abnormalities noted. Speech is within normal limits for rate, tone and volume. Language and fund of knowledge seem average. Focus and concentration are intact. Memory is grossly intact on clinical exam. Mood is good and affect is full and reactive. Thought process linear. No loosening of associations. No evident delusions. Denies audiovisual hallucinations. Denies suicidal or homicidal ideation, intent or plan. Insight and judgment are fair. Pt Condition on Discharge: Stable Discharge Disposition: Discharge Home Discharge Instructions Diet Instructions: As Tolerated, No Restrictions Activities you can perform: Weight Bearing as Tye Scheduled Appointment: as per counselor's notes New Orders: CBC WITH DIFF - 2-3 Days New Medications: Haloperidol (Haloperidol) 5 Mg Tab 5 MG PO BID Mental Health Days 15 Ref 1 TAB ([Benztropine]) 1 MG TAB 1 MG PO DAILY Mental Health Days 15 Ref 1 TAB Discharge Time <= 30 minutes Discharge/Advance Care Plan Health Problems: (1) Schizophrenia (2) Cocaine abuse Goals to promote your health * To prevent worsening of your condition and complications * To maintain your health at the optimal level Directions to meet your goals Take your medications as prescribed Follow your dietary instruction Follow activity as directed Keep your appointments as scheduled Take your immunizations and boosters as scheduled If your symptoms worsen call your PCP, if no PCP go to Urgent Care Center or Emergency Room For 24/ questions related to your inpatient stay or results of tests pending at discharge, please contact Dr. Mathew Dominguez at Smoking is Dangerous to Your Health. Avoid second hand smoking Problem Qualifiers (1) Schizophrenia: Qualified Code: F20.3 - Undifferentiated schizophrenia Mathew Dominguez MD Aug 17, 2016 13:05
== END 2016-08-17 15:05 | disposition home or self-care (01) | DRG 885 ==
LOC: NEPC 03:52 → NEDA 16:02 → H270 16:52 → H260 08-15 22:02
PROVIDERS: ADMIT Psychiatry & Neurology Psychiatry; ATTEND Psychiatry & Neurology Psychiatry
DX: F20.3 Undifferentiated schizophrenia (principal); F14.10 Cocaine abuse, uncomplicated; F31.9 Bipolar disorder, unspecified; F17.210 Nicotine dependence, cigarettes, uncomplicated; F10.10 Alcohol abuse, uncomplicated
CPT/HCPCS: 80048; 80053; 80061; 80307; 82728; 83036; 83540; 83550; 84702; 84703; 85025; 96372; J1630; Q0163